=== PATIENT | male | born 1955 | race Asian ===

== ENCOUNTER 2018-03-02 02:15 | Inpatient (IN) | payer OTHER ==
[~2018-03-02] VITALS: Ht 167.6 cm; Wt 72.6 kg
== END 2018-03-04 14:40 | disposition home or self-care (01) | DRG 390 ==
LOC: ER 02:15 → SURH 11:45 → SEC-K 11:45 → SURH 13:43
PROC: BW40ZZZ Ultrasonography of Abdomen (ICD-10-PCS; principal; 2018-03-02)
PROC: BW21ZZZ Computerized Tomography (CT Scan) of Abdomen and Pelvis (ICD-10-PCS; 2018-03-02)
DX: K56.690 Other partial intestinal obstruction (principal); K80.20 Calculus of gallbladder without cholecystitis without obstruction; R33.8 Other retention of urine; R07.89 Other chest pain; E86.0 Dehydration; E11.9 Type 2 diabetes mellitus without complications; Z79.4 Long term (current) use of insulin